=== PATIENT | female | born 1985 | race Caucasian/White ===

== ENCOUNTER 2018-01-20 16:20 | Emergency (ER) | payer MEDICAID ==
[~2018-01-20] VITALS: Ht 154.9 cm; Wt 68.0 kg
[2018-01-20 16:39] VITALS: BP_SYST 144
[2018-01-20 17:30] VITALS: BP_SYST 144
== END 2018-01-20 17:30 | disposition home or self-care (01) ==
LOC: SED 16:20
DX: H10.9 Unspecified conjunctivitis (principal)
CPT/HCPCS: 99283

== ENCOUNTER 2018-10-30 09:57 | Emergency (ER) | payer MEDICAID ==
[~2018-10-30] VITALS: Ht 154.9 cm; Wt 68.0 kg
[2018-10-30 10:07] VITALS: BP_SYST 135
--- NOTE | 2018-10-30 10:20 | NUR ---
Patient to ER bed 4 to gown for evaluation. Side rails up. Report given to Maria Ines WINSTON .
--- NOTE | 2018-10-30 10:45 | NUR ---
Patient presented to ER with cough since 10/07/18. Yoday patient states she is having productive cough, runny nose, green sputum, chest wall pain, occasional SOB, and sneezing. Patient states symptoms started 10/07/18 with fever and chills. Patient A&Ox4, ambulatory to ER, afebrile, cough & runny nose noted, eyes bilat red, respirations equal bilat, lung sounds clear. Patient states she was seen "eye doctor prior to ER visit for red eyes, eye doctor prescribed eye antibiotics. Patient denies N/V/D.
--- NOTE | 2018-10-30 10:50 | NUR ---
ER at bedside examining patient.
[2018-10-30] MEDS: AZITHROMYCIN 250 MG TABLET PO ONE (11:21)
[2018-10-30] MEDS: guaiFENesin/DEXTROMETHORPHAN 10 ML UDC PO ONE (11:22)
[2018-10-30 11:24] LABS: WHITE BLOOD COUNT (AUTO) 12.5 K/uL (4.8-10.8)
[2018-10-30 11:30] LABS: HEMOGLOBIN 12.6 g/dL (12.0-16.0); RED BLOOD CELL COUNT(AUTO) 4.43 MIL/uL (4.2-6.2)
[2018-10-30 11:31] LABS: BASOPHILS % (AUTO) 0.4 % (0.0-2.0); EOSINOPHILS # (AUTO) 0.1 K/uL (0.0-0.4); EOSINOPHILS % (AUTO) 0.6 % (0.0-4.0); HEMATOCRIT 37.7 % (36-48); LYMPHOCYTES # (AUTO) 1.3 K/uL (1.0-5.5); LYMPHOCYTES % (AUTO) 10.2 % (20.5-51.5); MEAN CORPUSCULAR HEMOGLOBIN 29 pg (27-31); MEAN CORPUSCULAR HGB CONC 34 % (32-36); MEAN CORPUSCULAR VOLUME 85 fL (79.0-98.0); MONOCYTES # (AUTO) 0.5 K/uL (0.0-1.0); MONOCYTES % (AUTO) 4.2 % (1.7-9.3); NEUTROPHILS # (AUTO) 10.6 K/uL (1.8-7.7); NEUTROPHILS % (AUTO) 84.6 % (40.0-70.0); PLATELET COUNT (AUTO) 428 K/uL (130-430); RED CELL DISTRIBUTION WIDTH 13.5 % (9.0-15.0)
[2018-10-30 11:55] VITALS: BP_SYST 130
--- NOTE | 2018-10-30 12:03 | NUR ---
Patient given written and verbal discharge instructions and verbalizes understanding. ER MD discussed with patient the results and treatment provided. Patient in stable condition. ID arm band removed. Rx of albuterol,zithromax given. Patient educated on pain management and to follow up with PMD. Pain Scale 0. Opportunity for questions provided and answered. Medication side effect fact sheet provided.
== END 2018-10-30 12:03 | disposition home or self-care (01) ==
LOC: SED 09:57
DX: J20.9 Acute bronchitis, unspecified (principal); R03.0 Elevated blood-pressure reading, without diagnosis of hypertension
CPT/HCPCS: 36415; 71045; 85025; 99284; Q0144

== ENCOUNTER 2018-12-04 08:52 | Emergency (ER) | payer MEDICAID ==
[~2018-12-04] VITALS: Ht 154.9 cm; Wt 68.0 kg
[2018-12-04 08:58] VITALS: BP_SYST 131
[2018-12-04 09:43] LABS: BASOPHILS % (AUTO) 0.4 % (0.0-2.0); EOSINOPHILS % (AUTO) 0.4 % (0.0-4.0); HEMATOCRIT 39.9 % (36-48); HEMOGLOBIN 13.4 g/dL (12.0-16.0); LYMPHOCYTES # (AUTO) 0.8 K/uL (1.0-5.5); LYMPHOCYTES % (AUTO) 8.3 % (20.5-51.5); MEAN CORPUSCULAR HEMOGLOBIN 29 pg (27-31); MEAN CORPUSCULAR HGB CONC 34 % (32-36); MEAN CORPUSCULAR VOLUME 86 fL (79.0-98.0); MONOCYTES # (AUTO) 0.3 K/uL (0.0-1.0); MONOCYTES % (AUTO) 2.8 % (1.7-9.3); NEUTROPHILS # (AUTO) 8.5 K/uL (1.8-7.7); NEUTROPHILS % (AUTO) 88.1 % (40.0-70.0); PLATELET COUNT (AUTO) 345 K/uL (130-430); RED BLOOD CELL COUNT(AUTO) 4.66 MIL/uL (4.2-6.2); RED CELL DISTRIBUTION WIDTH 13.7 % (9.0-15.0); WHITE BLOOD COUNT (AUTO) 9.7 K/uL (4.8-10.8)
[2018-12-04 09:58] LABS: CALCIUM 9.2 mg/dL (8.4-11.0); CREATININE 0.76 mg/dL (0.55-1.30)
[2018-12-04 10:04] LABS: ALBUMIN 3.3 g/dL (3.4-4.8); TOTAL BILIRUBIN 0.3 mg/dL (0.0-1.0)
[2018-12-04 11:00] VITALS: BP_SYST 128
== END 2018-12-04 11:00 | disposition home or self-care (01) ==
LOC: SED 08:52
DX: H83.09 Labyrinthitis, unspecified ear (principal); R42 Dizziness and giddiness
CPT/HCPCS: 36415; 71045; 80053; 81025; 85025; 93005; 99284